=== PATIENT | male | born 1955 | race Caucasian/White ===

== ENCOUNTER → 2018-11-05 16:29 | Outpatient (CLI) | payer BC, SELFPAY ==
[2013-08-25 06:08] VITALS: BMI 26.4
[2018-11-05 17:43] LABS: PSA,Total - Annual Screen 1.74 ng/mL (0.00-4.00)
--- OUTSIDE RECORDS SUMMARY | 2019-01-07 22:55 | XMS RPT_ITS ---
:1955 Author Organization OHIP Care Team Providers Name Role Phone Glae Kamara Attending Unavailable Gale Kamara Referring Unavailable Jose Gonzalez Primary Care Unavailable PROBLEMS PROBLEMS No Problem Records FoundPROCEDURES PROCEDURES No Procedure Records FoundRESULTS RESULTS PSA,TOTAL - ANNUAL Collected: 11/05/2018 Status: F Source: [place] SCREEN 4:35 PM [facility] REPOSITORY TYPE CODE TESTS RESULT OUT OF RANGE REFERENCE UNITS LAB L501.9910 0.00-4.00 ng/mL Normal PSA,TOT 1.74 SCREEN Result Comment: This test was performed using the TPSA assay method for the [employer] chemistry system. Values obtained with different assay methods cannot be used interchangably. When changing PSA assays in the course of monitoring a patient, additional sequential testing should be carried out to confirm baseline values. Performed By: #### L501.9910 #### [facility] [address] [place], [address] PROGRESS Observed: 05/06/2018 Status: COMPLETED Source: [place] 5:21 PM [facility] REPOSITORY HNO ID: [id number] Author: Dana Juarez) Eliane Service: (none) Author Type: Physician Loan Originator Type: Progress Notes Filed: 05/06/2018 5:26 PM Note Text: Subjective HPI Pt presents with a rash on his face the past 4-5 days. He had shaved and noticed it after that. It has started spreading on his face. He starts it is mildly itchy. He was concerned about impetigo. NO new medications or soaps. No new detergents. Review of Systems Skin: Positive for itching and rash. All other systems reviewed and are negative. PAST MEDICAL HISTORY Diagnosis Date - Kidney stones Current Outpatient Prescriptions: codeine-guaiFENesin (ROBITUSSIN AC) 10-100 mg/5 mL syrup Take 5-10 mL by mouth four times daily as needed for Cough. May cause drowsiness. Disp: 120 mL Rfl: 0 MULTI-VITAMIN ORAL Take by mouth. Disp: Rfl: niacin, inositol niacinate, 500 mg Tab Take 2,000 mg by mouth. Disp: Rfl: mupirocin (BACTROBAN) 2 % cream Apply 1 application to affected area three times daily for 10 days. Location: face Disp: 15 g Rfl: 0 cephALEXin (KEFLEX) 500 mg capsule Take 1 capsule by mouth three times daily for 10 days. Disp: 30 capsule Rfl: 0 No current facility-administered medications for this visit. PAST SURGICAL HISTORY Procedure Laterality Date - COLONOSCOPY 1979 - FRAGMENTING OF KIDNEY STONE 10/2010 FAMILY HISTORY Problem Relation Age of Onset - Diabetes Mother Social History Substance Use Topics - Smoking status: Never Smoker - Smokeless tobacco: Never Used - Alcohol use Not on file BP 118/80 Pulse 78 Temp 36.8 ?C (98.3 ?F) Resp 16 Wt 88 kg (194 lb) BMI 24.91 kg/m? Objective Physical Exam Constitutional: He is oriented to person, place, and time and well-developed, well-nourished, and in no distress. HENT: Head: Normocephalic and atraumatic. Right Ear: External ear normal. Left Ear: External ear normal. Nose: Nose normal. Mouth/Throat: Oropharynx is clear and moist. Pt has multiple erythematous crusty lesions on face with scabbing. Consistent with impetigo Cardiovascular: Normal rate, regular rhythm and normal heart sounds. Pulmonary/Chest: Effort normal and breath sounds normal. Neurological: He is alert and oriented to person, place, and time. Skin: Skin is warm and dry. No rash noted. Psychiatric: Affect and judgment normal. Nursing note and vitals reviewed. ASSESSMENT/PLAN: 1. Impetigo - ICD9: 684, ICD10: L01.00 - Topical treatment with mupirocin ointment (Bactroban) TID - Systemic treatment with Cephalaxin (Keflex) - Skin care and contagious disease precautions discussed - Follow up if symptoms persist or fail to resolve - MUPIROCIN 2 % TOPICAL CREAM - CEPHALEXIN 500 MG CAPSULE Dana Clark PA-C CNOV Observed: 05/06/2018 Status: COMPLETED Source: [place] 1:00 PM [facility] REPOSITORY Office Visit (WSTR) BLAINE LOGAN ([id number]) 1955 M Date Time Provider Department 05/06/18 1:00 PM DANA CLARK (PATRICIO) [facility] During your visit today, we recorded the following information about you: Temperature Pulse Respiration Blood pressure 98.3 degrees 78/minute 16/minute 118/80 Weight 88 kg Dana Clark PA-C 05/06/2018 5:26 PM Signed Subjective HPI Pt presents with a rash on his face the past 4-5 days. He had shaved and noticed it after that. It has started spreading on his face. He starts it is mildly itchy. He was concerned about impetigo. NO new medications or soaps. No new detergents. Review of Systems Skin: Positive for itching and rash. All other systems reviewed and are negative. PAST MEDICAL HISTORY Diagnosis Date - Kidney stones Current Outpatient Prescriptions: codeine-guaiFENesin (ROBITUSSIN AC) 10-100 mg/5 mL syrup Take 5-10 mL by mouth four times daily as needed for Cough. May cause drowsiness. Disp: 120 mL Rfl: 0 MULTI-VITAMIN ORAL Take by mouth. Disp: Rfl: niacin, inositol niacinate, 500 mg Tab Take 2,000 mg by mouth. Disp: Rfl: mupirocin (BACTROBAN) 2 % cream Apply 1 application to affected area three times daily for 10 days. Location: face Disp: 15 g Rfl: 0 cephALEXin (KEFLEX) 500 mg capsule Take 1 capsule by mouth three times daily for 10 days. Disp: 30 capsule Rfl: 0 No current facility-administered medications for this visit. PAST SURGICAL HISTORY Procedure Laterality Date - COLONOSCOPY 1979 - FRAGMENTING OF KIDNEY STONE 10/2010 FAMILY HISTORY Problem Relation Age of Onset - Diabetes Mother Social History Substance Use Topics - Smoking status: Never Smoker - Smokeless tobacco: Never Used - Alcohol use Not on file BP 118/80 Pulse 78 Temp 36.8 ?C (98.3 ?F) Resp 16 Wt 88 kg (194 lb) BMI 24.91 kg/m? Objective Physical Exam Constitutional: He is oriented to person, place, and time and well-developed, well-nourished, and in no distress. HENT: Head: Normocephalic and atraumatic. Right Ear: External ear normal. Left Ear: External ear normal. Nose: Nose normal. Mouth/Throat: Oropharynx is clear and moist. Pt has multiple erythematous crusty lesions on face with scabbing. Consistent with impetigo Cardiovascular: Normal rate, regular rhythm and normal heart sounds. Pulmonary/Chest: Effort normal and breath sounds normal. Neurological: He is alert and oriented to person, place, and time. Skin: Skin is warm and dry. No rash noted. Psychiatric: Affect and judgment normal. Nursing note and vitals reviewed. ASSESSMENT/PLAN: 1. Impetigo - ICD9: 684, ICD10: L01.00 - Topical treatment with mupirocin ointment (Bactroban) TID - Systemic treatment with Cephalaxin (Keflex) - Skin care and contagious disease precautions discussed - Follow up if symptoms persist or fail to resolve - MUPIROCIN 2 % TOPICAL CREAM - CEPHALEXIN 500 MG CAPSULE Dana Clark PA-C Referring Provider: SELF [200] Allergies As of Date: 05/06/2018 (No Known Allergies) Date Reviewed: 05/06/2018 Reviewed by: Debo Wallace LPN - Fully Assessed Reason for Visit: Rash [1087] Cmt: x 4-5 days rash on face Primary Visit Diagnosis:Impetigo [L01.00] Order(s):mupirocin (BACTROBAN) 2 % creamApply 1 application to affected area three times daily for 10 days. Location: faceDisp: 15 gRfl: 0 cephALEXin (KEFLEX) 500 mg capsuleTake 1 capsule by mouth three times daily for 10 days.Disp: 30 capsuleRfl: 0 Prescriptions as of 05/06/2018 Sig: CODEINE 10 MG-GUAIFENESIN 100* Take 5-10 mL by mouth four ti* * MULTI-VITAMIN ORAL Take by mouth. * NIACIN (INOSITOL NIACINATE) 5* Take 2,000 mg by mouth. 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 Location: face CEPHALEXIN 500 MG CAPSULE 30 c* 0 05/06/2018 05/16/2018 Route: ORAL Sig: Take 1 capsule by mouth three times daily for 10 days. Encounter Status:Closed by DANA CLARK PA-C on 05/06/18 GROUP A STREP BY Collected: 03/28/2018 Status: F Source: [place] PCR 9:18 AM [facility] REPOSITORY TYPE CODE TESTS RESULT OUT OF REFERENCE UNITS RANGE LAB GASSRC Throat Swab GAS Specimen Source LAB PCRGAS Negative for Group A Strep Group A PCR Streptococcus by PCR. Result Comment: This test was developed and its performance characteristics determined by [facility]'s [facility] Pathology and [facility] [place] ([facility]). It has not been cleared or approved by the FDA. [facility] is regulated under CLIA as qualified to perform high-complexity testing. This test is used for clinical purposes. It should not be regarded as inv estigational or for research. Performed By: #### GASPCR #### [facility] [address], [place] [address] PROGRESS Observed: 03/28/2018 Status: COMPLETED Source: [place] 8:26 AM [facility] REPOSITORY HNO ID: [id number] Author: Norma Bautista (Loree) Alfonso Service: (none) Author Type: Nurse Practitioner Type: Progress Notes Filed: 03/28/2018 8:44 AM Note Text: Subjective HPI Patient presents with: Sore Throat: x 1 week Pain, Sinus: x 1 week sinus pain/pressure Fever: x 1 week Ear Pain: x 1 week Cough: x 1 week Belgica-seltzer, Nyquil, and ASA otc with minimal relief. Denies hx smoking or asthma. Review of Systems Constitutional: Positive for fever. Negative for chills and malaise/fatigue. HENT: Positive for congestion, ear pain and sore throat. Eyes: Negative for discharge and redness. Respiratory: Positive for cough. Negative for hemoptysis, sputum production, shortness of breath and wheezing. Gastrointestinal: Negative for abdominal pain, diarrhea, nausea and vomiting. Skin: Negative for rash. Neurological: Positive for headaches. PAST MEDICAL HISTORY Diagnosis Date - Kidney stones PAST SURGICAL HISTORY Procedure Laterality Date - COLONOSCOPY 1979 - FRAGMENTING OF KIDNEY STONE 10/2010 ALLERGIES Patient has no known allergies. MEDICATIONS codeine-guaiFENesin (ROBITUSSIN AC) 10-100 mg/5 mL syrup Take 5-10 mL by mouth four times daily as needed for Cough. May cause drowsiness. MULTI-VITAMIN ORAL Take by mouth. niacin, inositol niacinate, 500 mg Tab Take 2,000 mg by mouth. FAMILY HISTORY Problem Relation Age of Onset - Diabetes Mother Social History Substance Use Topics - Smoking status: Never Smoker - Smokeless tobacco: Never Used - Alcohol use Not on file Objective Physical Exam Constitutional: He is well-developed, well-nourished, and in no distress. HENT: Head: Normocephalic. Right Ear: External ear and ear canal normal. Tympanic membrane is erythematous. Left Ear: External ear and ear canal normal. Tympanic membrane is erythematous. Nose: Mucosal edema present. Right sinus exhibits maxillary sinus tenderness and frontal sinus tenderness. Left sinus exhibits maxillary sinus tenderness and frontal sinus tenderness. Mouth/Throat: Posterior oropharyngeal erythema (PND) present. Eyes: Conjunctivae are normal. Neck: Normal range of motion. Neck supple. Cardiovascular: Normal rate, regular rhythm and normal heart sounds. Pulmonary/Chest: Effort normal and breath sounds normal. No respiratory distress. He has no wheezes. Abdominal: Soft. He exhibits no distension. There is no tenderness. Lymphadenopathy: He has cervical adenopathy. Skin: Skin is warm and dry. No rash noted. Nursing note and vitals reviewed. ASSESSMENT/PLAN: 1. Acute suppurative otitis media of both ears without spontaneous rupture of tympanic membranes, recurrence not specified - ICD9: 382.00, ICD10: H66.003 (primary diagnosis) - Will begin treatment with Amoxicillin for 10 days - The patient should also be given OTC decongestants prn, OTC cough and cold meds as needed, warm salt water gargles, throat lozenges and/or OTC throat spray as needed and nasal saline gtts and suction prn for the first 5-7 days of treatment. - Supportive care with plenty of fluids, rest, and analgesia prn. - Follow up in 3-5 days if symptoms persist or worsen. 2. Sore throat - ICD9: 462, ICD10: J02.9 - Rapid Strep negative in the office today and Throat culture pending - Discussed supportive care treatment with fluids, rest and analgesia. - The patient may also use OTC decongestants prn, OTC cough and cold meds as needed, warm salt water gargles, throat lozenges and/or OTC throat spray as needed and nasal saline gtts and suction prn. - The patient should follow up in 3-5 days if symptoms persist or worsen - Call back if drooling, increased temperature, symptoms of dehydration and/or still sick in one week - RAPID STREP TEST B/O - GROUP A STREPTOCOCCUS BY PCR 3. Acute bronchitis, unspecified organism - ICD9: 466.0, ICD10: J20.9 -Prednisone -Bromfed -F/u with pcp in 3-5 days or sooner if symptoms are not improving or worsening Prescription instructions reviewed with patient as applicable. Patient advised if symptoms do not improve or if symptoms worsen sooner, to contact their primary care physician. Potential red flag symptoms discussed with the patient. Reviewed appropriate action plan to take if red flag symptoms occur. Patient agreeable to treatment plan. Norma Hamilton APRN.DEPUTY INSURANCE COMMISSIONER CNOV Observed: 03/28/2018 Status: COMPLETED Source: [place] 8:00 AM [facility] REPOSITORY Office Visit (WSTR) BLAINE LOGAN ([id number]) 1955 M Date Time Provider Department 03/28/18 8:00 AM NORMA HAMILTON (LOREE) [facility] During your visit today, we recorded the following information about you: Temperature Pulse Respiration Blood pressure 99 degrees 102/minute 18/minute 126/78 Weight 88.9 kg Norma Hamilton APRN.CNP 03/28/2018 8:44 AM Signed Subjective HPI Patient presents with: Sore Throat: x 1 week Pain, Sinus: x 1 week sinus pain/pressure Fever: x 1 week Ear Pain: x 1 week Cough: x 1 week Belgica-seltzer, Nyquil, and ASA otc with minimal relief. Denies hx smoking or asthma. Review of Systems Constitutional: Positive for fever. Negative for chills and malaise/fatigue. HENT: Positive for congestion, ear pain and sore throat. Eyes: Negative for discharge and redness. Respiratory: Positive for cough. Negative for hemoptysis, sputum production, shortness of breath and wheezing. Gastrointestinal: Negative for abdominal pain, diarrhea, nausea and vomiting. Skin: Negative for rash. Neurological: Positive for headaches. PAST MEDICAL HISTORY Diagnosis Date - Kidney stones PAST SURGICAL HISTORY Procedure Laterality Date - COLONOSCOPY 1979 - FRAGMENTING OF KIDNEY STONE 10/2010 ALLERGIES Patient has no known allergies. MEDICATIONS codeine-guaiFENesin (ROBITUSSIN AC) 10-100 mg/5 mL syrup Take 5-10 mL by mouth four times daily as needed for Cough. May cause drowsiness. MULTI-VITAMIN ORAL Take by mouth. niacin, inositol niacinate, 500 mg Tab Take 2,000 mg by mouth. FAMILY HISTORY Problem Relation Age of Onset - Diabetes Mother Social History Substance Use Topics - Smoking status: Never Smoker - Smokeless tobacco: Never Used - Alcohol use Not on file Objective Physical Exam Constitutional: He is well-developed, well-nourished, and in no distress. HENT: Head: Normocephalic. Right Ear: External ear and ear canal normal. Tympanic membrane is erythematous. Left Ear: External ear and ear canal normal. Tympanic membrane is erythematous. Nose: Mucosal edema present. Right sinus exhibits maxillary sinus tenderness and frontal sinus tenderness. Left sinus exhibits maxillary sinus tenderness and frontal sinus tenderness. Mouth/Throat: Posterior oropharyngeal erythema (PND) present. Eyes: Conjunctivae are normal. Neck: Normal range of motion. Neck supple. Cardiovascular: Normal rate, regular rhythm and normal heart sounds. Pulmonary/Chest: Effort normal and breath sounds normal. No respiratory distress. He has no wheezes. Abdominal: Soft. He exhibits no distension. There is no tenderness. Lymphadenopathy: He has cervical adenopathy. Skin: Skin is warm and dry. No rash noted. Nursing note and vitals reviewed. ASSESSMENT/PLAN: 1. Acute suppurative otitis media of both ears without spontaneous rupture of tympanic membranes, recurrence not specified - ICD9: 382.00, ICD10: H66.003 (primary diagnosis) - Will begin treatment with Amoxicillin for 10 days - The patient should also be given OTC decongestants prn, OTC cough and cold meds as needed, warm salt water gargles, throat lozenges and/or OTC throat spray as needed and nasal saline gtts and suction prn for the first 5-7 days of treatment. - Supportive care with plenty of fluids, rest, and analgesia prn. - Follow up in 3-5 days if symptoms persist or worsen. 2. Sore throat - ICD9: 462, ICD10: J02.9 - Rapid Strep negative in the office today and Throat culture pending - Discussed supportive care treatment with fluids, rest and analgesia. - The patient may also use OTC decongestants prn, OTC cough and cold meds as needed, warm salt water gargles, throat lozenges and/or OTC throat spray as needed and nasal saline gtts and suction prn. - The patient should follow up in 3-5 days if symptoms persist or worsen - Call back if drooling, increased temperature, symptoms of dehydration and/or still sick in one week - RAPID STREP TEST B/O - GROUP A STREPTOCOCCUS BY PCR 3. Acute bronchitis, unspecified organism - ICD9: 466.0, ICD10: J20.9 -Prednisone -Bromfed -F/u with pcp in 3-5 days or sooner if symptoms are not improving or worsening Prescription instructions reviewed with patient as applicable. Patient advised if symptoms do not improve or if symptoms worsen sooner, to contact their primary care physician. Potential red flag symptoms discussed with the patient. Reviewed appropriate action plan to take if red flag symptoms occur. Patient agreeable to treatment plan. Norma Hamilton APRN.DEPUTY INSURANCE COMMISSIONER Referring Provider: SELF [200] Allergies As of Date: 03/28/2018 (No Known Allergies) Date Reviewed: 03/28/2018 Reviewed by: Norma Bautista (Account Group Supervisor) Alfonso - Fully Assessed Reason for Visit: Sore Throat [200] Cmt: x 1 week Pain, Sinus [857] Cmt: x 1 week sinus pain/pressure Fever [47] Cmt: x 1 week Ear Pain [817] Cmt: x 1 week Cough [28] Cmt: x 1 week Primary Visit Diagnosis:Acute suppurative otitis media of both ears without spontaneous rupture of tympanic membranes, recurrence not specified [H66.003] Other Visit Diagnoses:Sore throat [J02.9] Acute bronchitis, unspecified organism [J20.9] Order(s):RAPID STREP TEST B/O [0512899] Order #: [id number] GROUP A STREPTOCOCCUS BY PCR [SQGASPCR] Order #: [id number] amoxicillin (AMOXIL) 875 mg tabletTake 1 tablet by mouth twice daily for 10 days.Disp: 20 tabletRfl: 0 Hqqcmnyowyjldbp-Mfcmdqgqv-RE (BROMFED DM) 2-30-10 mg/5 mL syrupTake 10 mL by mouth four times daily as needed for up to 7 days.Disp: 240 mLRfl: 0 predniSONE (DELTASONE) 20 mg tabletTake 2 tablets by mouth once daily for 4 days. Take daily with food.Disp: 8 tabletRfl: 0 Prescriptions as of 03/28/2018 Sig: CODEINE 10 MG-GUAIFENESIN 100* Take 5-10 mL by mouth four ti* * MULTI-VITAMIN ORAL Take by mouth. * NIACIN (INOSITOL NIACINATE) 5* Take 2,000 mg by mouth. 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 ELKGLEPDGVYDEHK-MDFGRXEDXEEJGRK-II 2* 240 * 0 03/28/2018 04/04/2018 Route: ORAL Sig: Take 10 mL by mouth four times daily as needed for up to 7 days. PREDNISONE 20 MG TABLET 8 ta* 0 03/28/2018 04/01/2018 Route: ORAL Sig: Take 2 tablets by mouth once daily for 4 days. Take daily with food. Disposition: Return if symptoms worsen or fail to improve. Follow-up and Disposition History Recorded Encounter Status:Closed by NORMA HAMILTON on 03/28/18 ALLERGIES ALLERGIES DATE TYPE / CODE NAME / CODE REACTION SEVERITY SOURCE 08/18/2013 Drug No Known Unknown [facility] Allergy/416 Allergies/U45198 [facility] [id number](SNOM 0388(RXNORM) Repository ED CT) Drug NO KNOWN [facility] Class/12417 ALLERGIES [address] [place] 1003(SNOMED Repository CT) ENCOUNTERS ENCOUNTERS ADMIT/DISCHARGE ACCOUNT ADMITTING ENCOUNTER LOCATION SOURCE NUMBER CLASS 11/05/2018 [id number] [facility] ing:LAB Repository 05/06/2018/05/07/20 [id number] Ambulatory [address] Repository 03/28/2018/03/28/20 [id number] Ambulatory [address] Repository PAYERS PAYERS ENCOUNTER GUARANTOR PAYER SUBSCRIBER SOURCE 11/05/2018 BLAINE L Primary BLAINE L [address] Insurance:ANTHEMPolic BROWNDOB: [place] Number: [id number] [id number]: [id number] Repository Date:5785-60-78MM [address] () [address], [place] [address]PG: 11/05/2018 Secondary NOT GIVENUNK [place] Insurance:SELF PAY [facility] Number: Effective Repository Date:2018-11-05
== END ==
PROVIDERS: Family Provider Family Medicine; PCP Family Medicine; Referring Provider Nurse Practitioner Adult Health; Visit Provider Nurse Practitioner Adult Health
DX: Z12.5 Encounter for screening for malignant neoplasm of prostate (principal)
CPT/HCPCS: 36415; 84153; G0103

== ENCOUNTER → 2021-01-11 07:44 | Outpatient (CLI) | payer MEDICARE, BC, SELFPAY ==
--- NOTE | 2021-01-11 07:52 | CT_ITS ---
STUDY: CT ABDOMEN AND PELVIS WITHOUT CONTRAST REASON FOR EXAM: Male, 65 years old. CALCULUS OF KIDNEY. Urinary frequency. RADIATION DOSAGE (If Supplied By Facility): CTDIvol = ( 9.02 ) mGy, DLP = ( 466.60 ) mGycm TECHNIQUE: Transaxial images were obtained from the dome of the diaphragm to the symphysis pubis without oral contrast, and without intravenous contrast. Sagittal and coronal images were reconstructed. Individualized dose optimization techniques were used for this CT. COMPARISON: None. FINDINGS: Minimal linear scarring in the posterior aspect of the lingular segment of the left upper lobe. The visualized portions of the heart are within normal limits. Small cysts are seen in the dome of the right lobe of the liver. The largest cyst measures 1.5 cm. A 1 cm cyst is also seen along the anterior aspect of the left lobe of the liver. Normal gallbladder and extrahepatic biliary system. Normal spleen. Normal pancreas. Normal bilateral adrenal glands. 3 mm calculus in the upper pole calyx of the right kidney. 4.2 mm nonobstructive calculus in the posterior midpole calyx of the left kidney. There is a left retroaortic vein. There is a small hiatal hernia. Normal small intestine. Normal colon. The appendix is visualized and appears normal. There is scattered atherosclerotic calcification of the abdominal aorta, without a demonstrated aneurysm. Normal inferior vena cava. Normal retroperitoneum. Normal urinary bladder. There is enlargement of the prostate gland. It measures 4.1 cm x 5.1 cm. Asymmetric prostatic calcifications are seen. There is a small umbilical hernia containing fat. Small right inguinal hernia containing fat. There are diffuse degenerative changes of the visualized lumbar spine. There is evidence of an hemangioma of the L1 vertebrae. There is a 2.3 cm x 0.9 cm sclerotic density in the posterior aspect of the right iliac bone. Correlation with nuclear medicine bone scan is recommended. CT/Abdomen/Pelvis without Cont IMPRESSION: Nonobstructive bilateral intrarenal calculi. Hepatic cysts. Prostatic enlargement. 2.3 cm x 0.9 cm sclerotic density in the posterior aspect of the right iliac bone. Correlation with a bone scan is recommended. Electronically Signed: Narciso Sorensen MD at 8:38 EDT , Service support ,
== END ==
PROVIDERS: PCP Preventive Medicine Occupational Medicine; Referring Provider Nurse Practitioner Adult Health; Visit Provider Nurse Practitioner Adult Health
DX: N20.0 Calculus of kidney (principal); R35.0 Frequency of micturition
CPT/HCPCS: 74176

== ENCOUNTER → 2021-01-18 07:22 | Outpatient (CLI) | payer MEDICARE, BC, SELFPAY ==
--- NOTE | 2021-01-18 07:27 | NM_ITS ---
CLINICAL: 65-year-old male with reported history of radiographic abnormality involving the right posterior ilium. WHOLE BODY 99m Tc MDP RADIONUCLIDE BONE SCINTIGRAPHY COMPARISON: CT of the abdomen-pelvis 01/11/2021 FINDINGS: Following the intravenous administration of 25.4 mCi of 99m Tc MDP, whole body bone images reveal: 1. Increased radiopharmaceutical concentration is defined in the upper cervical spine posteriorly on the left, mid cervical spine posteriorly on the left and right, first thoracic vertebra posteriorly on the left the left wrist and hand, acromioclavicular compartment of the right shoulder, glenohumeral compartment of the left shoulder, the right hip involving the superior acetabulum, bilateral knees, medial compartment of the right ankle. 2. The remaining skeletal structures are scintigraphically unremarkable with normal-appearing renal images and urinary bladder activity identified. Enhanced tracer distribution is observed in the greater trochanteric aspect of the left proximal femur most consistent with periostitis and/or trochanteric bursitis. NM/Bone Scan Whole Body IMPRESSION: 1. The increase in radiopharmaceutical concentration defined in the cervical and thoracic spine, left wrist and hand, bilateral shoulders, the right hip, both knees and right ankle articulation is most consistent with degenerative arthritis. 2. Meticulous attention paid to the right posterior ilium demonstrates no evidence of abnormal increased tracer uptake to correlate with the radiographic changes defined on CT of the abdomen pelvis dated 01/11/2021. Electronically Signed: Nathaniel Beard DO at 21:47 EDT Tel , Service support ,
== END ==
PROVIDERS: PCP Preventive Medicine Occupational Medicine; Referring Provider Nurse Practitioner Adult Health; Visit Provider Nurse Practitioner Adult Health
DX: R93.7 Abnormal findings on diagnostic imaging of other parts of musculoskeletal system (principal)
CPT/HCPCS: 78306

== ENCOUNTER → 2021-01-24 16:53 | Outpatient (CLI) | payer MEDICARE, BC, SELFPAY ==
[2013-08-25 06:08] VITALS: BMI 26.4
== END ==
LOC: LABSPEC 16:54
PROVIDERS: PCP Preventive Medicine Occupational Medicine; Referring Provider Urology; Visit Provider Urology
DX: N20.9 Urinary calculus, unspecified (principal); Z87.442 Personal history of urinary calculi
CPT/HCPCS: 82360

== ENCOUNTER → 2021-05-12 07:31 | Outpatient (CLI) | payer MEDICARE, BC, SELFPAY ==
[2013-08-25 06:08] VITALS: BMI 26.4
[2021-05-12 19:33] LABS: Chlamydia Trachomatis by PCR Negative (Negative); Neisserai gonorrhoeae by PCR Negative (Negative); Probe Check PASS; Sample Adequacy Control PASS; Specimen Processing Control PASS
== END ==
PROVIDERS: PCP Preventive Medicine Occupational Medicine; Visit Provider Nurse Practitioner Adult Health
DX: R30.0 Dysuria (principal)
CPT/HCPCS: 87491; 87591

== ENCOUNTER → 2024-02-28 | Outpatient (CLI) | payer MEDICARE, OTHER, SELFPAY ==
[2024-02-28 11:17] LABS: PSA,Total- Diagnostic 2.56 ng/mL (0.0-4.0)
== END | disposition home or self-care (01) ==
LOC: LAB 09:23
PROVIDERS: PCP Preventive Medicine Occupational Medicine; Referring Provider Urology; Visit Provider Urology
DX: N40.1 Benign prostatic hyperplasia with lower urinary tract symptoms (principal)
CPT/HCPCS: 36415; 84153